=== PATIENT | female | born 1995 | race Caucasian/White ===

== ENCOUNTER → 2017-08-22 | Emergency (ER) | payer OTHER ==
[~2017-08-22] VITALS: Ht 152.4 cm; Wt 63.5 kg
== END | disposition home or self-care (01) ==
LOC: ER 18:45
DX: K92.1 Melena (principal); K61.0 Anal abscess

== ENCOUNTER 2020-10-30 15:55 | Outpatient (CLI) | payer OTHER | END 2020-10-30 15:59 | disposition home or self-care (01) | LOC: SONOGRAMA 15:55 | PROVIDERS: ATTEND Obstetrics & Gynecology | DX: Q51.818 Other congenital malformations of uterus (principal); R19.09 Other intra-abdominal and pelvic swelling, mass and lump; R10.2 Pelvic and perineal pain; N92.1 Excessive and frequent menstruation with irregular cycle; N64.4 Mastodynia; N60.11 Diffuse cystic mastopathy of right breast; N60.12 Diffuse cystic mastopathy of left breast; Z12.31 Encounter for screening mammogram for malignant neoplasm of breast ==

== ENCOUNTER 2021-03-26 08:06 | Day surgery (SDC) | payer OTHER | END 2021-03-26 11:50 | disposition home or self-care (01) | LOC: AMB-ENDOS 08:06 | PROVIDERS: ATTEND Colon & Rectal Surgery | DX: K62.89 Other specified diseases of anus and rectum (principal); K64.0 First degree hemorrhoids; Z20.822 Contact with and (suspected) exposure to COVID-19 ==

== ENCOUNTER → 2022-08-18 | Emergency (ER) | payer OTHER ==
[~2022-08-18] VITALS: Ht 152.4 cm; Wt 62.1 kg
[~2022-08-18] MED LIST: KETO10TA2 PO
== END | disposition home or self-care (01) ==
LOC: ER 20:24
DX: N83.02 Follicular cyst of left ovary (principal); K58.9 Irritable bowel syndrome, unspecified